=== PATIENT | female | born 1965 | race Caucasian/White ===

== ENCOUNTER 2017-02-04 08:34 | Emergency (ER) | payer OTHER ==
[2017-02-04 09:01] VITALS: BMI 39.6
[2017-02-04 09:02] VITALS: RESP 16; TEMP 98.3; O2SAT 99
--- NOTE | 2017-02-04 09:21 | ED PDOC ---
Arrival/HPI - General Chief Complaint: Upper Extremity Problem/Injury Time Seen by Provider: 02/04/17 09:18 Historian: Patient - History of Present Illness Narrative History of Present Illness (Text): 02/04/17 09:18 51 year old female presents to the emergency department with left shoulder pain for the past two days. Patient states pain is worse when trying to lift her arm. Denies injury or trauma. Time/Duration: < week Symptom Onset: Gradual Symptom Course: Unchanged Modifying Factors (Text): None Associated Symptoms (Text): None Past Medical History - Provider Review Nursing Documentation Reviewed: Yes - Psychiatric Hx Substance Use: No - Surgical History Hx Hysterectomy: Yes Family/Social History - Physician Review Nursing Documentation Reviewed: Yes Family/Social History: Unknown Family HX Smoking Status: Never Smoked Hx Alcohol Use: No Hx Substance Use: No Allergies/Home Meds Allergies/Adverse Reactions: Allergies No Known Allergies Allergy (Verified 02/04/17 09:00) Review of Systems - Physician Review All systems were reviewed & negative as marked: Yes Physical Exam - Physical Exam Narrative Physical Exam (Text): - Review of Systems Constitutional: Normal. absent: Fatigue, Weight Change, Fevers Eyes: Normal ENT: Normal Respiratory: Normal absent: SOB, Cough, Sputum Cardiovascular: Normal absent: Chest pain, Palpitations, Syncope Gastrointestinal: Normal absent: Abdominal pain, Diarrhea, Nausea, Vomiting Genitourinary: Normal. absent: Dysuria, Frequency, Hematuria Musculoskeletal: Left shoulder pain absent: Arthralgias, Back Pain, Neck Pain Skin: Normal Neurological: Normal absent: Focal Weakness Endocrine: Normal Hemo/Lymphatic: Normal Psychiatric: Normal - Physical exam Patient appears age appropriate, speaking full sentences without difficulty - Systems Exam Head: Present: Atraumatic, Normocephalic Pupils: Present: PERRL Extraocular Muscles: Present: EOMI Conjunctiva: Present: Normal Mouth: Present: Moist Mucous Membranes Neck: Present: Normal Range of Motion. No: MIDLINE TENDERNESS, Paraspinal Tenderness Respiratory/Chest: Present: Clear to Auscultation, Good Air Exchange. No: Respiratory Distress, Accessory Muscle Use, Tachypneic Cardiovascular: Present: Regular Rate and Rhythm, Normal S1, S2, Peripheral Pulses Present. No: Murmurs Abdomen: Present: Normal Bowel Sounds, No: Tenderness, Peritoneal Signs, Rebound, Guarding, Distention Back: Present: Normal Inspection. No: Midline Tenderness, Paraspinal Tenderness Upper Extremity: Present: Left lateral shoulder tenderness to palpation with pain and decreased range of motion upon abduction, flexion unaffected. No: Cyanosis, Edema Lower Extremity: Present: Normal Inspection. No: Edema Neurological: Present: GCS=15, Speech Normal, cranial nerves II through XII fully intact with no cerebellar abnormality, neuro-sensory fully intact. No focal neurological deficits. Skin: Present: Warm, Dry, Normal Color. No: Rashes Lymphatic: Present: OX3, NI, NC Psychiatric: Present: Alert, Oriented x 3, Normal Insight, Normal Concentration Vital Signs Reviewed: Yes Vital Signs Temp Pulse Resp BP Pulse Ox 02/04/17 09:01 98.3 F 91 H 16 118/79 99 Temperature: Afebrile Blood Pressure: Normal Pulse: Regular Respiratory Rate: Normal Appearance: Positive for: Well-Appearing, Non-Toxic, Uncomfortable Pain Distress: None Mental Status: Positive for: Alert and Oriented X 3 Medical Decision Making ED Course and Treatment: Impression: 51 year old female presents with left shoulder pain. On physical exam, patient has left lateral shoulder tenderness to palpation with pain and decreased range of motion upon abduction. Differential Diagnosis include but are not limited to: Calcific tendonitis Plan: -- XR left shoulder -- Toradol -- Reassess and disposition Progress Notes: 02/04/17 10:03 Patient's shoulder x-ray shows no acute fractures or dislocations. Interpreted by me. had an extensive d/w pt that although xrays are negative for any acute bony abnormality, it is still very important to fu with pmd and ortho specialist for further w/u and testing such as MRI to r/o any ligamentous/tendenous/meniscal injury. Pt verbalized full understanding of above discussion. Pt states she understands to return to the ER right away for new or worsening symptoms or for inability to f/u with PMD or specialist as instructed. Patient states that she fully agrees with and understands discharge instructions. States that she agrees with the plan and disposition. Verbalized and repeated discharge instructions and plan. I have given the patient opportunity to ask any additional questions. 02/04/17 10:17 EKG interpreted by ER physician. Normal sinus. No ST-segment elevations. Normal intervals. - RAD Interpretation Radiology Orders: 02/04/17 09:18 SHOULDER LEFT [RAD] Stat - Medication Orders Current Medication Orders: Discontinued Medications Ketorolac Tromethamine (Toradol) 30 mg IM STAT STA Stop: 02/04/17 09:19 Last Admin: 02/04/17 09:33 Dose: 30 MG IM Administration Charges Document 02/04/17 09:33 SF (Rec: 02/04/17 09:33 SF [id number]) Injection Site MAR Injection Site Left Deltoid Charges for Administration # of IM Administrations 1 - Scribe Statement The provider has reviewed the documentation as recorded by the Alisia Causey Provider Scribe Attestation: All medical record entries made by the Scribe were at my direction and personally dictated by me. I have reviewed the chart and agree that the record accurately reflects my personal performance of the history, physical exam, medical decision making, and the department course for this patient. I have also personally directed, reviewed, and agree with the discharge instructions and disposition. Disposition/Present on Arrival - Present on Arrival Any Indicators Present on Arrival: No History of DVT/PE: No History of Uncontrolled Diabetes: No Urinary Catheter: No History of Decub. Ulcer: No History Surgical Site Infection Following: None - Disposition Have Diagnosis and Disposition been Completed?: Yes Diagnosis: Shoulder pain Disposition: HOME/ ROUTINE Disposition Time: 10:04 Patient Plan: Discharge Patient Problems: Current Active Problems Problem Status Diagnosed Shoulder pain Acute Condition: GOOD Discharge Instructions (ExitCare): Tendinitis (ED), Calcific Tendinitis (ED) Additional Instructions: PLEASE RETURN TO THE EMERGENCY DEPARTMENT FOR NEW OR WORSENING SYMPTOMS. RETURN RIGHT AWAY IF YOU CANNOT FOLLOW UP WITH YOUR PRIMARY CARE DOCTOR, CLINIC, OR SPECIALIST IN 1-2 DAYS. Prescriptions: Ibuprofen [Motrin] 600 mg PO Q8 PRN #12 tab PRN Reason: Pain, Moderate (4-7) Referrals: Lauren Alejandro MD [Primary Care Provider] - Follow up with primary Jesus Casey MD [Staff Provider] - Follow up with primary Se Bills DO [Staff Provider] - Follow up with primary
--- NOTE | 2017-02-04 09:52 | RAD ---
PROCEDURE: Radiographs of the Left Shoulder HISTORY: pain COMPARISON: No prior. FINDINGS: BONES: Normal. No fracture. JOINTS: Normal. Glenohumeral and acromioclavicular joints preserved. No osteoarthritis. SOFT TISSUES: Normal. OTHER FINDINGS: None. IMPRESSION: Normal radiographs of the left shoulder.
[2017-02-04 10:46] VITALS: BP 119/80; PULSE 89
--- NOTE | 2017-02-04 18:27 | CARD ---
APPROVED REPORT EKG Measurement Heart [id number] <Conclusion> Normal sinus rhythm Normal ECG
== END 2017-02-04 10:46 | disposition home or self-care (01) ==
LOC: MERGE 08:34 → ED 08:34
DX: M25.512 Pain in left shoulder (principal)
CPT/HCPCS: 73030; 93005; 96372; 99284; J1885